=== PATIENT | female | born 2000 | race Caucasian/White ===

== ENCOUNTER 2023-05-06 11:09 | Day surgery (SDC) | payer BC ==
[2023-05-05 09:44] VITALS: BMI 26.2
[2023-05-06] MEDS ORDERED: CEFAZOLIN 2 GM VIAL ONE (12:41)
[2023-05-06] MEDS ORDERED: Misoprostol 200 MCG TAB ONE (12:42)
[2023-05-06] MEDS ORDERED: Tranexamic Acid 1,000 MG/10 ML VIAL ONE (12:43)
[2023-05-06] MEDS ORDERED: Methylergonovine 0.2 MG/ML VIAL ONE (12:43)
[2023-05-06] MEDS ORDERED: Ondansetron PF 4 MG/2 ML Vial ONE ×2 (12:50→14:38)
[2023-05-06] MEDS ORDERED: Midazolam HCl 2 mg/2 ml Vial ONE ×2 (12:50→13:16)
[2023-05-06] MEDS ORDERED: fentaNYL 50 mcg/mL 1 mL Vial ONE ×2 (13:02→13:34)
[2023-05-06] MEDS ORDERED: SUGAMMADEX SODIUM 200 MG/2 ML VIAL ONE (13:02)
[2023-05-06] MEDS ORDERED: PROPOFOL 20 ML ONE (13:02)
[2023-05-06] MEDS ORDERED: SUCCINYLCHOLINE/SOD CL,ISO/PF 200 MG/10 ML SYRINGE FS ONE (13:05)
[2023-05-06] MEDS ORDERED: Dexamethasone 4 mg/ml Vial ONE (13:05)
[2023-05-06] MEDS ORDERED: Lidocaine 1% PF 5 ML VIAL ONE (13:05)
[2023-05-06] MEDS ORDERED: diphenhydrAMINE 50 MG/ML VIAL ONE (13:23)
[2023-05-06] MEDS ORDERED: Rocuronium Bromide 10 MG/ML (10ML VIAL) ONE (13:27)
== END 2023-05-06 16:21 | disposition home or self-care (01) ==
LOC: CSHSDC 11:09
PROVIDERS: ATTEND Obstetrics & Gynecology
PROC: 10D07Z6 Extraction of Products of Conception, Vacuum, Via Natural or Artificial Opening (ICD-10-PCS; principal; 2023-05-06)
DX: O02.0 Blighted ovum and nonhydatidiform mole (principal); Z88.1 Allergy status to other antibiotic agents; E10.9 Type 1 diabetes mellitus without complications; E03.9 Hypothyroidism, unspecified; Z79.4 Long term (current) use of insulin; Z79.890 Hormone replacement therapy
CPT/HCPCS: 88305; J1100; J1200; J2210; J2250; J2405; J2704; J3010